=== PATIENT | male | born 1990 | race Caucasian/White ===

== ENCOUNTER 2016-07-25 15:51 | Emergency (ER) | payer MEDICAID ==
[~2016-07-25] VITALS: Ht 162.6 cm; Wt 80.0 kg
[2016-07-25 15:54] VITALS: Ht 162.6 cm; Wt 80.0 kg
[2016-07-25] MEDS ORDERED: NITR-58 PO (19:06)
[2016-07-25] MEDS ORDERED: HYDR-902 PO (19:06)
--- NOTE | 2016-07-25 19:07 | ERD ---
ER Documentation Chief Complaint Date/Time DATE: 07/25/16 TIME: 19:06 Chief Complaint dysuria x 1 week HPI This is a 26-year-old male complains of dysuria. The patient's had dysuria for 6 days now and he has seen his doctor and receive Pyridium and Cipro. Says his Cipro is not helping he is having dysuria that the entire stream and worsening at the end of the stream and suprapubic cramping. No vomiting fever diarrhea back pain ROS All systems reviewed and are negative except as per history of present illness. Medications Home Meds Active Scripts Hydrocodone/Acetaminophen ([place]ers 10-325 Tablet) 1 Each Tablet, 1 TAB PO Q6H Y for PAIN, #20 TAB Prov:VICKY RACHEL. DO 07/25/16 Nitrofurantoin Monohyd Macrocr* (Macrobid*) 100 Mg Capsr, 100 MG PO BID for 10 Days, CAP Prov:SHARONOSBHUMISTOLOS A. DO 07/25/16 PMhx/Soc Medical and Surgical Hx: pt denies Medical Hx, pt denies Surgical Hx FmHx Family History: No coronary disease Physical Exam Vitals Vital Signs Date Time Temp Pulse Resp B/P Pulse Ox O2 Delivery O2 Flow Rate FiO2 07/25/16 15:54 85 18 139/72 99 Physical Exam Const: Well-developed, well-nourished Head: Atraumatic, normocephalic Eyes: Normal Conjunctiva, PERRLA, EOMI, normal sclera, no nystagmus ENT: Normal External Ears, Nose and Mouth, moist mucus membranes. Neck: Full range of motion. No meningismus, no lymphadenopathy. Resp: Clear to auscultation bilaterally, no wheezing, rhonchi, rales Cardio: Regular rate and rhythm, no murmurs, S1 S2 present Abd: Soft, non tender x 4, non distended. Normal bowel sounds, no guarding or rebound, no pulsitile abdominal masses or bruits Skin: No petechiae or rashes, no ecchymosis , no maculopapular rash Back: No midline or flank tenderness Ext: No cyanosis, or edema, FROM x 4, normal inspection, neurovascularly intact x 4 Neur: Awake and alert, STR 5/5 x 4, sensation intact x 4, no focal findings, cerebellum intact Psych: Normal Mood and Affect Procedures/MDM Patient's urine infection is likely resistant to Cipro. I will switch his medication to Macrobid Departure Diagnosis: Primary Impression: Dysuria Condition: Stable Patient Instructions: VICKY Medina DO Jul 25, 2016 19:07
[2016-07-25 19:34] VITALS: PULSE 65; RESP 20; TEMP 98.6
== END 2016-07-25 19:45 | disposition home or self-care (01) ==
LOC: FTE 15:51
DX: R30.0 Dysuria (principal)
CPT/HCPCS: 99283

== ENCOUNTER 2018-03-18 08:06 | Emergency (ER) | END 2018-03-18 12:25 | disposition home or self-care (01) ==